=== PATIENT | male | born 1965 | race Caucasian/White ===

== ENCOUNTER 2021-05-10 22:59 | Emergency (ER) | payer BC, SELFPAY ==
[2021-05-10 22:59] VITALS: BP 141/87; PULSE 99; RESP 22; TEMP 39.2; O2SAT 93; BMI 31.5
--- NOTE | 2021-05-10 23:18 | RAD_ITS ---
STUDY: X-RAY CHEST REASON FOR EXAM: Male, 55 years old. Cough. Covid. TECHNIQUE: AP COMPARISON: None. FINDINGS: Peripheral groundglass densities in the mid and lower lungs bilaterally. No apparent consolidation, pneumothorax, or pleural effusion. Heart size normal. No concerning mediastinal or hilar lesions. No acute osseous abnormality. No evidence of free air under the diaphragm. RAD/Chest 1 View (Portable) IMPRESSION: Mild Covid pneumonia. Electronically Signed: Lele Casiano MD at 0:36 EST Reading Location ID and State: [facility] / [place] Tel , Service support ,
--- NOTE | 2021-05-10 23:19 | EKG12_ITS ---
Test Reason : SOB Blood Pressure : / mmHG Vent. Rate : 086 BPM Atrial Rate : 086 BPM P-R Int : 136 ms QRS Dur : 094 ms QT Int : 350 ms P-R-T Axes : 057 010 035 degrees QTc Int : 418 ms Normal sinus rhythm Normal ECG Confirmed by JHON GOLDBERG, MALINA ([id number]), editor trade journal FRANK JIMÉNEZ ([id number]) on 05/13/2021 10:33:00 AM Referred By: ELLIOT Confirmed By:MALINA FERREIRA MD
--- NOTE | 2021-05-10 23:22 | ED.VIS.DYS ---
HPI History of Present Illness Chief Complaint: Shortness of Breath Informant: patient and spouse/S.O. Narrative Narrative: Patient presents on day 8 of Covid. He started with symptoms with cough and headache last Wednesday. He had a positive home test on Wednesday. He is continued with the symptoms. He has had cough producing some mild yellowish and clear sputum. He has had intermittent diarrhea. No nausea and vomiting but has had a significant reduction in in his appetite. He has had diffuse myalgias and arthralgias. He was originally placed on 5 days of prednisone. That has been done. He then called his primary physician and was placed on Z-Camacho. He came in today because he has been hitting saturations at 87 and 88% at home today. He feels overall his symptoms are were getting better but now they are starting to worsen again. He has no hemoptysis or chest pain. No family history of DVT or PE. Nothing has specifically made his symptoms better or worse. Patient also states that he occasionally hears wheezing in his lungs. This was heard by physician before this illness. He was having some work-up done. He has never been a smoker and has never had asthma though. Patient also had [employer] vaccines in approximately June or July. He has not had booster. [facility] Medical History (Updated 05/11/21 @ 01:[address] Gabino Hardy MD) Sleep apnea Home Medications albuterol sulfate [Ventolin HFA] 2 puff INHALATION Q4H PRN PRN #1 inhaler 05/11/21 [Rx Last Taken Unknown] dexamethasone [Decadron] 6 mg PO DAILY #9 tab 05/11/21 [Rx Last Taken Unknown] Allergy/AdvReac Type Severity Reaction Status Date / Time acetaminophen [From Percocet] AdvReac Other Verified 05/10/21 23:02 oxycodone [From Percocet] AdvReac Other Verified 05/10/21 23:02 Social History Smoking Status: Never smoker ROS ROS ED Constitutional Constitutional ED: Reports chills, fever(s) and sweats Eyes Eyes: Denies change in vision ENT ENT ED: Reports rhinorrhea; Denies sore throat Cardiovascular Cardiovascular: Denies chest pain or palpitations Respiratory/Chest Respiratory/Chest: Reports cough, dyspnea and sputum Gastrointestinal Gastrointestinal: Reports diarrhea; Denies abdominal pain, nausea or vomiting Genitourinary Genitourinary ED: Denies dysuria Musculoskeletal Musculoskeletal: Reports arthralgias and myalgias Integumentary Denies rash Neurologic Neurologic: Reports headache(s); Denies paresthesias or weakness Psychiatric Psychiatric: Denies anxiety or depression Endocrine Endocrinology: Denies polydipsia or polyuria Hematologic/Lymphatic Hematologic/Lymphatic: Denies easy bleeding or easy bruising Allergic/Immunologic Allergic/Immunologic ED: Denies mouth swelling or urticaria EXAM Physical Exam Const Vital Signs: 05/10/21 22:59 05/10/21 23:39 05/10/21 23:45 Temperature 102.5 F H Temperature Source Temporal Pulse Rate 99 84 Respiratory Rate 22 H 18 Respiratory Effort Short of Breath Respiratory Pattern Tachypnea Normal Blood Pressure 141/87 H Blood Pressure Mean 105 Pulse Ox 93 Oxygen Delivery Method Room Air Room Air Oxygen Flow Rate (L/min) 05/10/21 23:49 05/11/21 00:00 05/11/21 01:42 Temperature 101.4 F H 99.4 F H Temperature Source Oral Oral Pulse Rate 82 78 Respiratory Rate 30 H 30 H 16 Respiratory Effort Respiratory Pattern Blood Pressure 142/75 H 122/62 H Blood Pressure Mean 97 82 Pulse Ox 87 94 94 Oxygen Delivery Method Room Air Nasal Cannula Nasal Cannula Oxygen Flow Rate (L/min) 2 2 05/11/21 02:11 Temperature Temperature Source Pulse Rate 76 Respiratory Rate 24 H Respiratory Effort Respiratory Pattern Blood Pressure 107/73 Blood Pressure Mean Pulse Ox 94 Oxygen Delivery Method Oxygen Flow Rate (L/min) Positive well nourished and well developed General Appearance ED: well developed and NAD HEENT atraumatic Eyes General Eye ED: Negative for pale conjunctiva or scleral icterus Neck no JVD Resp normal respiratory effort Resp Narrative: No definite wheezes heard at this time but he does have coarse breath sounds throughout. While sitting in bed his respiratory effort seems normal. But his saturations are only 90 to 91% while sitting still. Auscultation: rhonchi; Negative for rales or wheezes Cardio regular rate, regular rhythm and no murmurs GI non-tender Palpation: soft Back/Spine no CVA tenderness and normal to inspection Extremity normal to inspection Extremity Narrative: No cords or asymmetry. General Extremety ED: Negative for edema or tenderness General Extremity: Negative for edema Neuro Sensorium / Orientation: alert; Negative for lethargic or stuporous Psych mental status grossly normal Skin no wounds Lesions: no lesions Rashes: no rashes MDM MDM MDM Narrative Medical decision making narrative: Patient CBC is overall normal. His D-dimer is negative. Electrolytes show minimal decrease of sodium and potassium that should self correct. His glucose is a little bit high at 260. This will certainly need to be followed but might be related to steroid use. He has not had a history of diabetes in the past. His x-ray is consistent with Covid pneumonia Patient was able to be check for desaturation here. He did hit 87% with ambulation so he should qualify for oxygen. We are helping to arrange this. We will get him on Decadron because of the low oxygen levels. With his high glucose and going on Decadron we will see if I can send off a hemoglobin A1c although this may be able to be done tonight. He will contact his physician on Wednesday morning to follow-up with his A1c and see if he needs therapy. They do have an oxygen saturation device at home. We discussed reasons to return. Lab Data Attestation: I reviewed the patient's lab results. Labs: Laboratory Results - last 24 hr 05/10/21 05/10/21 05/10/21 23:24 23:24 23:24 WBC 6.8 RBC 5.08 Hgb 15.8 Hct 43.9 MCV 86.4 MCH 31.1 MCHC 36.0 RDW Std Deviation 39.2 RDW Coeff of Fang 12.3 Plt Count 225 MPV 9.6 Immature Gran % (Auto) 0.400 Neut % (Auto) 80.4 H Lymph % (Auto) 12.2 L [place] % (Auto) 6.8 Eos % (Auto) 0.1 Baso % (Auto) 0.1 Absolute Neuts (auto) 5.4 Absolute Lymphs (auto) 0.83 Nucleated RBC % 0 D-Dimer Quant (PE/DVT) 0.44 Sodium 132 L Potassium 3.2 L Chloride 100 Carbon Dioxide 23.0 Anion Gap 9 BUN 15 Creatinine 0.88 Estim Creat Clear Calc 99.08 Est GFR (MDRD) Af Amer 115 Est GFR (MDRD) Non-Af 95 BUN/Creatinine Ratio 17.0 Glucose 260 H Calcium 8.3 L Radiography Diagnostic Testing: Clinical Impression(s) from Imaging Studies Chest X-Ray 05/10/21 23:18 IMPRESSION: Mild Covid pneumonia. Electronically Signed: Lele Casiano MD at 0:36 EST Reading Location ID and State: [facility] / [place] Tel , Service support , EKG Initial EKG: Comments: EKG done for dyspnea read by me shows normal sinus rhythm with a rate of 86. No ectopy. Mild baseline variation but no ST elevation or depression. MA interval, QRS duration and QTc normal. Discharge Plan Triage Chief Complaint: Shortness of Breath ED Provider: Gabino Hardy Dx/Rx/DC Orders Clinical Impression: Pneumonia due to 2019 novel coronavirus, Hypoxia, Hyperglycemia Instructions: Coronavirus Disease 2019 (COVID-19): Caring for Yourself or Others, ED Hyperglycemia New Susp Diabetes Prescriptions: New dexamethasone [Decadron] 6 mg tablet 6 mg PO DAILY Qty: 9 RF: 0 albuterol sulfate [Ventolin HFA] 1 INHALER inhaler 2 puff inhalation Q4H PRN PRN (Reason: Wheezing) Qty: 1 RF: 0 Primary Care Provider: Bulmaro Cabrales Referrals: Bulmaro Cabrales MD [Primary Care Provider] - 2 Days Disposition Disposition: Home, Self Care Discharge Date/Time: 05/11/21 02:12
[2021-05-10 23:38] LABS: Absolute Lymphocyte Count 0.83 X10^3/uL (0.83-4.51); Absolute Neutrophil Count 5.4 X10^3/uL (2.0-7.7); Basophil# 0.01 X10^3/uL; Basophil% 0.1 % (0-1); Eosinophil# 0.01 X10^3/uL; Eosinophils% 0.1 % (0-5); Hematocrit 43.9 % (40-54); Hemoglobin 15.8 g/dL (13.0-16.5); Lymphocyte # 0.83 X10^3/ul (0.83-4.51); Lymphocyte % 12.2 % (19-41); Mean Corpuscular Hgb 31.1 pg (27.0-32.0); Mean Corpuscular Volume 86.4 fL (80-94); Mean Platelet Vol. 9.6 fl (6.2-12.0); Monocyte# 0.46 X10^3/uL; Monocyte% 6.8 % (0-10); NRBC Flagged by Analyzer 0 % (0-5); Neutrophil # 5.44 X10^3/uL (2.7-7.7); Neutrophil % 80.4 % (47-70); Platelet Count 225 K/mm3 (150-450); RBC Distribution Width CV 12.3 % (11.6-14.6); RBC Distribution Width SD 39.2 fl (35.1-43.9); Red Blood Count 5.08 M/mm3 (4.6-6.2); White Blood Count 6.8 K/mm3 (4.4-11.0)
[2021-05-10 23:39] VITALS: O2SAT 90
[2021-05-10] MEDS: Ipratropium/Albuterol Sulfate 3 ML AMPUL.NEB INHALATION (23:44)
[2021-05-10 23:45] VITALS: PULSE 84; RESP 18
[2021-05-10 23:49] VITALS: RESP 30; O2SAT 87
[2021-05-10 23:49] LABS: Anion Gap 9 (5-15); BUN 15 mg/dL (7-18); Calcium,Total 8.3 mg/dL (8.5-10.1); Chloride 100 mmol/L (98-107); Creatinine, Serum 0.88 mg/dL (0.70-1.30); EST Glomerular Filtration Rate 95 mL/min (>60); Est Glom Filt Rate - Afr Amer 115 mL/min (>60); Estimated Creatinine Clearance 99.08 ml/min; Glucose 260 mg/dL (74-106); Potassium 3.2 mmol/L (3.5-5.1); Sodium Level 132 mmol/L (136-145)
[2021-05-10] MEDS: Ibuprofen 200 MG Tablet 400 MG PO (23:50)
[2021-05-10] MEDS: dexAMETHasone 10 MG/ML Vial 6 MG IV (23:51)
[2021-05-11] VITALS: BP 142/75; PULSE 82; RESP 30; TEMP 38.6; O2SAT 94
[2021-05-11 00:06] LABS: D-Dimer Quantitative (DVT/PE) 0.44 FEU/ug/m (0.27-0.49)
[2021-05-11 01:42] VITALS: BP 122/62; PULSE 78; RESP 16; TEMP 37.4; O2SAT 94
[2021-05-11 02:11] VITALS: BP 107/73; PULSE 76; RESP 24; O2SAT 94
[2021-05-11 07:14] LABS: Hemoglobin A1c 9.9 % (3.8-5.6)
--- NOTE | 2021-05-12 10:10 | CASEMGMT ---
BERNADETTE NG ED COVID Home O2 follow-up: BERNADETTE NG placed call to patient's telephone number listed on demographics, patient answered. Patient states feeling way better today and denies shortness of breath. States beginning to tolerate small household tasks such as switching a load of laundry better than he was before. Patient states, Overall, I feel good and reports SpO2 90-94% with 2LPM continuous supplemental oxygen use. Patient has pulse oximeter that is a few years old and questions the accuracy of monitor as he gets readings in high 80's at times while at rest with oxygen in place. Denies feeling short of breath during these times. Patient reports he was offered a pulse oximeter in the emergency department but declined as he felt the one he had at home would be sufficient. Patient asks BERNADETTE NG if he may now accept offered pulse oximeter to ensure reading accuracy and would like to pick item up from the emergency department. BERNADETTE NG to place pulse oximeter at first front ventilator for patient pick-up today. Patient instructed that monitor displays both heart rate and SpO2 and patient voices understanding. Patient reports he has picked up his prescription medications and has been taking as directed. Encouraged to schedule PCP follow-up. Discussed deep breathing exercises with or without an IS and prone positioning. Patient voiced understanding. Patient agreeable to another follow-up call in the upcoming days. Patient denies further questions or concerns and expresses much gratitude for follow-up call, as well as care received in the emergency department. BERNADETTE Blue CM
--- NOTE | 2021-05-12 11:30 | CASEMGMT ---
Addendum entered by Vidya Calhoun 05/12/21 18:02: 1800- Call received from Devon, on-call staff member for [facility], who reports BiPAP adapter will be delivered to patient tomorrow morning during normal business hours. Per Devon, BiPAP not considered life-sustaining equipment and oxygen may be used without oxygen until adapter delivered. BERNADETTE NG placed call to patient's telephone number and patient answered. Patient informed of expected delivery tomorrow morning. Patient voices understanding. Patient reports he was able to strip picker ER-provided pulse oximeter and reading on new monitor 95% while using 2LPM supplemental oxygen. Patient denies further questions or concerns. BERNADETTE Bule CM Addendum entered by Vidya Calhoun 05/12/21 17:56: 1750- BERNADETTE NG placed call to [facility] after-hours contact and spoke with Latasha to confirm receipt of faxed order. On-call staff member will call BERNADETTE NG back to confirm receipt and delivery time for patient. Addendum entered by Vidya Calhoun 05/12/21 17:54: 1740- Fax received from [facility] with Dr. Janusz De Dios's signature for [facility] order. Order faxed to [facility] at this time. Addendum entered by Vidya Calhoun 05/12/21 17:13: 1650- No return fax received from [facility] at this time. BERNADETTE NG placed call to office, spoke with spa receptionist and asked to speak directly to Dr. De Dios's nurse to follow-up on needed order prior to office closing for the day. Tying In Machine Operator reported nurse still present in office and call was forwarded but received answering machine. Voice message left again requesting call prior to office closing to assist patient with obtaining oxygen bleed in for BiPAP. BERNADETTE Blue CM Addendum entered by Vidya Calhoun 05/12/21 15:14: 1425- Return call received from [facility] office staff and approval obtained to fax [facility] order form for BiPAP oxygen bleed in at 2LPM for physician signature to [phone], addressed to Dr. De Dios. Fax sent to provided number. BERNADETTE Blue CM Original Note: BERNADETTE NG note: Patient called this RN CM to report he needs order for oxygen bleed in to BiPAP. Patient reports he has asked [facility] for this capability but [facility] does not have an order for oxygen bleed in to BiPAP. ED provider that treated patient not available today. Call placed to patient's PCP Dr. Cabrales's office and voice message left on nurses' line with call back information requesting return call to discuss needed order. BERNADETTE Blue CM
--- NOTE | 2021-05-14 10:25 | CASEMGMT ---
BERNADETTE NG ED COVID Home O2 follow-up: BERNADETTE NG placed call to patient's telephone number listed on demographics with no answer. Voice message with call back information left requesting return call if any questions, concerns or needs. BERNADETTE Blue CM
== END 2021-05-11 02:12 | disposition home or self-care (01) ==
PROVIDERS: Emergency Provider Emergency Medicine; PCP Family Medicine; Visit Provider Emergency Medicine
DX: U07.1 COVID-19 (principal); J12.82 Pneumonia due to coronavirus disease 2019; R09.02 Hypoxemia; R73.9 Hyperglycemia, unspecified; R19.7 Diarrhea, unspecified; G47.30 Sleep apnea, unspecified
CPT/HCPCS: 71045; 80048; 83036; 85025; 85379; 87426; 93005; 94640; 96374; 99285; A4216

== ENCOUNTER 2022-03-24 07:49 | Emergency (ER) | payer BC, SELFPAY ==
[2022-03-24 07:50] VITALS: BP 154/65; PULSE 72; RESP 18; TEMP 35.7; O2SAT 98; BMI 31.8
--- NOTE | 2022-03-24 08:15 | CT_ITS ---
STUDY: CT ABDOMEN AND PELVIS WITH CONTRAST REASON FOR EXAM: Male, 56 years old. RLQ pain RADIATION DOSAGE (If Supplied By Facility): CTDIvol = ( 15.35 ) mGy, DLP = ( 1113.69 ) mGycm TECHNIQUE: Transaxial images were obtained from the dome of the diaphragm to the symphysis pubis without oral contrast. IV 100mL Isovue-300 was administered. Sagittal and coronal images were reconstructed. Individualized dose optimization techniques were used for this CT. COMPARISON: None. FINDINGS: The visualized lung bases are unremarkable. The visualized portions of the heart are within normal limits. Normal liver. Normal gallbladder and extrahepatic biliary system. Normal spleen. Normal pancreas. Normal bilateral adrenal glands. 5 mm obstructing stone at the right ureteral vesicle junction with moderate ureteral dilatation and hydronephrosis. Multiple small nonobstructing stones left kidney. Normal visualized stomach. Normal small intestine. Normal colon. The appendix is visualized and appears normal. Normal abdominal aorta. Normal inferior vena cava. Normal retroperitoneum. Normal urinary bladder. There are prostatic calcifications. Small bilateral hernias containing fat. Normal osseous structures. CT/Abdomen/Pelvis W IV Cont ONLY IMPRESSION: 5 mm obstructing stone at the right ureteral vesicle junction with moderate ureteral dilatation and hydronephrosis. Electronically Signed: Efrain Varela MD at 9:16 EST ,
--- NOTE | 2022-03-24 08:16 | EDS_ITS ---
HPI HPI - GI History of Present Illness Chief Complaint: Abd Pain Informant: patient Abdominal Pain/Flank Pain Onset: Hours (couple) Context: Gradual Onset Timing: Continuous Quality: Aching Location: RLQ Current Severity: Severe Maximum Severity: Severe Worsened by: Nothing Relieved by: Nothing Nausea/Vomiting/Emesis GI Symptom: Positive for Nausea; Negative for Vomiting Diarrhea/Melena/Hematochezia GI Symptom: Positive for Diarrhea (2 to 3 days ago, resolved); Negative for Melena or Hematochezia Associated Symptoms Associated Symptoms: Positive for Frequency (Past month); Negative for Dysuria, Hematuria or Urgency Narrative Narrative: Patient had an umbilical herniorrhaphy about [address] Lira. About 1 month ago, he started having urinary frequency and not feeling like he is emptying when he is done urinating, that has been going on daily since then and he is slated to see urology today concerning this after having a normal urinalysis. Today started having pain in his right lateral abdomen/lower quadrant. The pain is new. No other new symptoms since then but 3 days ago he was having vomiting, diarrhea, subjective fevers that are all resolved. [facility] Medical History (Updated 03/24/22 @ 09:[address] Chris Martel MD) Sleep apnea Type 2 diabetes mellitus Home Medications albuterol sulfate 90 mcg/actuation aerosol inhaler (Ventolin HFA) 2 puff inhalation Q4H PRN PRN Wheezing ##1 05/11/21 [Rx Last Taken Unknown] dexamethasone 6 mg tablet (Decadron) 6 mg PO DAILY #9 tabs 05/11/21 [Rx Last Taken Unknown] hydrocodone-acetaminophen 5-325mg 5mg-325mg 1 tab PO Q4H PRN PRN Pain 3 days #18 TABLETS 03/24/22 [Rx Last Taken Unknown] ondansetron 4 mg disintegrating tablet 8 mg PO Q8H PRN PRN Nausea #20 tabs 03/24/22 [Rx Last Taken Unknown] Allergy/AdvReac Type Severity Reaction Status Date / Time acetaminophen [From Percocet] AdvReac Other Verified 03/24/22 07:49 oxycodone [From Percocet] AdvReac Other Verified 03/24/22 07:49 Social History Smoking Status: Never smoker ROS ROS ED Constitutional Constitutional ED: Denies chills or fever(s) Eyes Eyes: Denies change in vision or diplopia ENT ENT ED: Denies rhinorrhea or sore throat Cardiovascular Cardiovascular: Denies chest pain or palpitations Respiratory/Chest Respiratory/Chest: Denies cough or dyspnea Gastrointestinal Gastrointestinal: Reports abdominal pain and nausea; Denies diarrhea or vomiting Genitourinary Genitourinary ED: Reports urinary frequency; Denies dysuria or hematuria Musculoskeletal Musculoskeletal: Denies back pain or neck pain Integumentary Denies abscess or rash Neurologic Neurologic: Denies headache(s), paresthesias or weakness Psychiatric Psychiatric: Denies anxiety or suicidal thoughts EXAM Physical Exam Const Vital Signs: 03/24/22 07:50 Temperature 96.3 F L Temperature Source Temporal Pulse Rate 72 Respiratory Rate 18 Blood Pressure 154/65 H Blood Pressure Mean 94 Pulse Ox 98 Oxygen Delivery Method Room Air Positive well nourished and well developed General Appearance ED: well developed and NAD HEENT Reports moist mucous membranes normocephalic and atraumatic Eyes PERRL and EOMs intact bilaterally Neck full ROM and supple Resp normal respiratory effort and clear to auscultation bilaterally Cardio regular rate, regular rhythm and no murmurs GI non-distended GI Narrative: Tender in the right lower quadrant and McBurney's point mostly. No guarding or rebound tenderness. Well-healed umbilical hernia incision without dehiscence, hernia, tenderness, cellulitis. Negative Rovsing. No right upper quadrant tenderness. Auscultation: normoactive bowel sounds Palpation: soft Back/Spine General Back: CVA tenderness right (Mild) and other FROM Extremity normal to inspection General Extremety ED: Negative for edema, pulses abnormal or tenderness General Extremity: Negative for edema or pulses abnormal Neuro oriented x3, CN's II-XII intact bilaterally, no sensory deficits noted and gait normal Sensorium / Orientation: awake and alert Motor Exam: strength 5/5 throughout Psych mental status grossly normal and thought process normal Skin no rashes or lesions noted and no wounds MDM MDM MDM Narrative Medical decision making narrative: Appendicitis, postoperative complications entered the differential diagnosis here, as does a kidney stone given the urinary symptoms he was having for the past several weeks. CT with IV contrast was obtained in addition to labs and a urinalysis, the labs are normal, the urine shows microscopic hematuria without signs of infection, and the CT shows a 5 mm ureteral stone with resulting hydronephrosis. I suspect this is the cause of his pain. He was much better after pain medication, requesting some more prior to discharge, he has an appointment with urology later today. He was given urine strainers to go home with as well as a prescription for pain and nausea medication. He does have small nonobstructing stones in the left which we discussed, and radiology did note that the appendix is visualized and appears normal. Lab Data Attestation: I reviewed the patient's lab results. Labs: Laboratory Results - last 24 hr 03/24/22 03/24/22 03/24/22 08:04 08:25 08:25 WBC 8.9 RBC 5.13 Hgb 15.3 Hct 46.2 MCV 90.1 MCH 29.8 MCHC 33.1 RDW Std Deviation 44.0 H RDW Coeff of Fang 13.3 Plt Count 278 MPV 9.3 Immature Gran % (Auto) 0.500 Neut % (Auto) 81.5 H Lymph % (Auto) 11.2 L [place] % (Auto) 5.5 Eos % (Auto) 1.1 Baso % (Auto) 0.2 Absolute Neuts (auto) 7.2 Absolute Lymphs (auto) 0.99 Nucleated RBC % 0 Sodium 139 Potassium 3.4 L Chloride 107 Carbon Dioxide 26.0 Anion Gap 6 BUN 15 Creatinine 1.22 Estim Creat Clear Calc 70.64 Est GFR (MDRD) Af Amer 79 Est GFR (MDRD) Non-Af 65 BUN/Creatinine Ratio 12.3 Glucose 230 H Calcium 8.6 Urine Color Yellow Urine Clarity Sl. Cloudy Urine pH 5.0 Ur Specific [place] 1.030 Urine Protein 100 H Urine Glucose (UA) 250 H Urine Ketones 5 H Urine Occult Blood 250 H Urine Nitrite Negative Urine Bilirubin Negative Urine Urobilinogen 1 H Ur Leukocyte Esterase Negative Urine RBC 25-50 SEEN Urine WBC 0 SEEN Ur Squamous Epith Cells 0-5 SEEN Calcium Oxalate Crystal 1+ Urine Bacteria 1+ Urine Mucus 0 SEEN Radiography Diagnostic Testing: Clinical Impression(s) from Imaging Studies Abdomen/Pelvis CT 03/24/22 08:15 IMPRESSION: 5 mm obstructing stone at the right ureteral vesicle junction with moderate ureteral dilatation and hydronephrosis. Electronically Signed: Efrain Varela MD at 9:16 EST , Discharge Plan Triage Chief Complaint: Abd Pain ED Provider: Chris Martel Dx/Rx/DC Orders Clinical Impression: Ureterolithiasis, Renal colic on right side Instructions: ED Urine Strainer, ED Kidney Stone w/ Colic Prescriptions: New ondansetron [ondansetron] 4 mg tablet,disintegrating 8 mg PO Q8H PRN PRN (Reason: Nausea) Qty: 20 0RF hydrocodone-acetaminophen [hydrocodone-acetaminophen] 5-325 mg tablet 1 tab PO Q4H PRN PRN (Reason: Pain) 3 Days Qty: 18 0RF No Action dexamethasone [Decadron] 6 mg tablet 6 mg PO DAILY Qty: 9 0RF albuterol sulfate [Ventolin HFA] 1 INHALER inhaler 2 puff inhalation Q4H PRN PRN (Reason: Wheezing) Qty: 1 0RF Primary Care Provider: Bulmaro Cabrales Referrals: Bulmaro Cabrales MD [Primary Care Provider] - Disposition Disposition: Home, Self Care
[2022-03-24 08:23] LABS: Mucous, Urine 0 SEEN /hpf (<or=2+); White Blood Cells 0 SEEN /hpf (0-5)
[2022-03-24 08:24] LABS: Color, Urine Yellow (Yellow); Glucose, Dipstick 250 mg/dl (Normal); Ketone-Dipstick 5 mg/dl (Negative); Leukocyte Esterase-Dipstick Negative /ul (Negative); Nitrite-Dipstick Negative (Negative); Occult Blood-Urine 250 /ul (Negative); Protein-Dipstick 100 mg/dl (Negative); Urine Bilirubin Dipstick Negative (Negative); Urine Clarity Sl. Cloudy (Clear); Urine Urobilinogen 1 mg/dl (Normal)
[2022-03-24] MEDS: Ketorolac 30 MG/ML Syringe IV (08:25)
[2022-03-24] MEDS: Ondansetron 4 MG/2 ML Vial IV (08:25)
[2022-03-24] MEDS: Morphine 4 MG/ML Syringe IV ×2 (08:25→09:59)
[2022-03-24 08:29] LABS: Absolute Lymphocyte Count 0.99 X10^3/uL (0.83-4.51); Absolute Neutrophil Count 7.2 X10^3/uL (2.0-7.7); Basophil# 0.02 X10^3/uL; Basophil% 0.2 % (0-1); Eosinophils% 1.1 % (0-5); Hematocrit 46.2 % (40-54); Hemoglobin 15.3 g/dL (13.0-16.5); Lymphocyte # 0.99 X10^3/ul (0.83-4.51); Lymphocyte % 11.2 % (19-41); Mean Corp Hgb Conc 33.1 g/dL (32-36); Mean Corpuscular Hgb 29.8 pg (27.0-32.0); Mean Corpuscular Volume 90.1 fL (80-94); Mean Platelet Vol. 9.3 fl (6.2-12.0); Monocyte# 0.49 X10^3/uL; Monocyte% 5.5 % (0-10); NRBC Flagged by Analyzer 0 % (0-5); Neutrophil # 7.21 X10^3/uL (2.7-7.7); Neutrophil % 81.5 % (47-70); Platelet Count 278 K/mm3 (150-450); RBC Distribution Width CV 13.3 % (11.6-14.6); Red Blood Count 5.13 M/mm3 (4.6-6.2); White Blood Count 8.9 K/mm3 (4.4-11.0)
[2022-03-24 08:31] LABS: Bacteria 1+ /hpf (None Seen); Calcium Oxalate Crystals Ur 1+ /hpf (<or=2+); Red Blood Cells-Urine 25-50 SEEN /hpf (0-5); Squamous Epithelial Cells - UA 0-5 SEEN /hpf (0-5)
[2022-03-24 08:40] LABS: Anion Gap 6 (5-15); BUN 15 mg/dL (7-18); BUN/Creat Ratio 12.3 RATIO (10-20); Calcium,Total 8.6 mg/dL (8.5-10.1); Chloride 107 mmol/L (98-107); Creatinine, Serum 1.22 mg/dL (0.70-1.30); EST Glomerular Filtration Rate 65 mL/min (>60); Est Glom Filt Rate - Afr Amer 79 mL/min (>60); Estimated Creatinine Clearance 70.64 ml/min; Glucose 230 mg/dL (74-106); Potassium 3.4 mmol/L (3.5-5.1); Sodium Level 139 mmol/L (136-145)
[2022-03-24 09:54] VITALS: BP 146/81; PULSE 67; RESP 14; O2SAT 97
== END 2022-03-24 10:06 | disposition home or self-care (01) ==
PROVIDERS: Emergency Provider Emergency Medicine; PCP Family Medicine; Visit Provider Emergency Medicine
DX: N13.2 Hydronephrosis with renal and ureteral calculous obstruction (principal); E11.9 Type 2 diabetes mellitus without complications; R31.29 Other microscopic hematuria; R19.7 Diarrhea, unspecified; G47.30 Sleep apnea, unspecified; Z79.899 Other long term (current) drug therapy
CPT/HCPCS: 74177; 80048; 81001; 85025; 96374; 96375; 96376; 99284; Q9967; A4216; J2405